=== PATIENT | male | born 1955 | race Caucasian/White ===

== ENCOUNTER 2017-08-10 08:08 | Outpatient (CLI) | payer OTHER ==
[2017-08-10 12:17] LABS: BASOPHILS # (AUTO) 0.1 10^3/uL (0.0-0.1); BASOPHILS % (AUTO) 0.9 %; EOSINOPHILS # (AUTO) 0.2 10^3/uL (0.0-0.7); EOSINOPHILS % (AUTO) 3.2 %; HCT - HEMATOCRIT 45.4 % (42.0-52.0); HGB - HEMOGLOBIN 15.4 g/dL (14.0-18.0); LYMPHOCYTES # (AUTO) 1.5 10^3/uL (1.5-3.5); LYMPHOCYTES % (AUTO) 18.7 %; MEAN CORPUSCULAR HEMOGLOBIN 30.8 pg (27.0-31.0); MEAN CORPUSCULAR HGB CONC 33.9 g/dL (32.0-36.0); MEAN CORPUSCULAR VOLUME 90.9 fL (80.0-94.0); MEAN PLATELET VOLUME 10.7 fL (7.4-11.4); MONOCYTES # (AUTO) 0.5 10^3/uL (0.0-1.0); MONOCYTES % (AUTO) 6.6 %; NEUTROPHILS # (AUTO) 5.5 10^3/uL (1.5-6.6); NEUTROPHILS % (AUTO) 70.6 %; NUCLEATED RED BLOOD CELLS AUTO 0.1 /100WBC; RED BLOOD COUNT 4.99 10^6/uL (4.70-6.10); RED CELL DISTRIBUTION WIDTH 12.7 % (12.0-15.0); UNCORRECTED WHITE BLOOD COUNT 7.8 x10^3/uL; WHITE BLOOD COUNT 7.8 x10^3/uL (4.8-10.8)
[2017-08-10 12:21] LABS: ALBUMIN/GLOBULIN RATIO 1.4 (1.0-2.2); BILIRUBIN,TOTAL 0.8 mg/dL (0.2-1.0); BUN - BLOOD UREA NITROGEN 14 mg/dL (6-20); CARBON DIOXIDE - CO2 26 mmol/L (21-32); CHLORIDE 106 mmol/L (101-111); CHOL/HDL RATIO 3.3 (<5.0); CHOLESTEROL 179 mg/dL; CREATININE 0.8 mg/dL (0.6-1.2); GFR - MDRD 98 (>89); GLUCOSE 101 mg/dL (70-100); HDL CHOLESTEROL 55 mg/dL; LDL/HDL RATIO 1.9 (<3.6); POTASSIUM 4.4 mmol/L (3.5-5.0); SODIUM 137 mmol/L (135-145); TOTAL PROTEIN 7.1 g/dL (6.7-8.2); TRIGLYCERIDES 95 mg/dL; URIC ACID 5.9 mg/dL (2.6-7.2); VLDL CHOLESTEROL 19 mg/dL
== END 2017-08-10 08:09 | disposition home or self-care (01) ==
LOC: LAB.F 08:08
PROVIDERS: ATTEND Internal Medicine
DX: M19.90 Unspecified osteoarthritis, unspecified site (principal); G62.9 Polyneuropathy, unspecified; E78.5 Hyperlipidemia, unspecified; M10.9 Gout, unspecified
CPT/HCPCS: 36415; 80053; 80061; 84153; 84550; 85025

== ENCOUNTER 2019-04-15 09:03 | Day surgery (SDC) | payer MEDICARE ==
[~2019-04-15 09:03] MED LIST: BUPIVACAINE 0.5% PF 10 ML VIAL ONE; CEFAZOLIN SODIUM IN 0.9 % NACL 2 GM/100 ML BAG IV ONE
[2019-04-15] MEDS ORDERED: ROCURONIUM 50 MG/5 ML VIAL IVP ONE (09:04)
[2019-04-15] MEDS ORDERED: CEFAZOLIN SODIUM IN 0.9 % NACL 2 GM/100 ML BAG IV ONE (09:04)
[2019-04-15] MEDS ORDERED: LACTATED RINGERS 1,000 ML IV ONE ×2 (09:43→11:43)
--- NOTE | 2019-04-15 09:58 | ANESTHESIA ---
Pre-Anesthesia VS, & Labs - Diagnosis left inguinal hernia - Procedure left inguinal hernia repair Vital Signs: Temp Pulse Resp BP Pulse Ox 36.6 C 79 15 139/93 H 96 04/15/19 09:15 04/15/19 09:15 04/15/19 09:15 04/15/19 09:15 04/15/19 09:15 Height 5 ft 8 in Weight (kg) 68.5 kg - NPO >8 hours Home Medications and Allergies Home Medications: Ambulatory Orders Omeprazole 20 mg PO 04/15/19 Omeprazole 20 mg PO 04/15/19 Allergies/Adverse Reactions: Allergies Allergy/AdvReac Type Severity Reaction Status Date / Time No Known Drug Allergies Allergy Verified 05/30/15 14:25 Anes History & Medical History - Anesthetic History Anesthesia Complications: reports: No previous complications Family history of Anesthesia Complications: Denies Family history of Malignant Hyperthermia: Denies - Medical History Cardiovascular: reports: None Pulmonary: reports: None Gastrointestinal: reports: None Urinary: reports: Kidney stones Musculoskeletal: reports: None Endocrine/Autoimmune: reports: None Skin: reports: None Exam General: Alert, Oriented x3, Cooperative, No acute distress Dental: WNL Mouth Openin Fingerbreadth Neck Mobility: Normal Mallampati classification: II Thyromental Distance: 4-6 cm Respiratory: Lungs clear, Normal breath sounds, No respiratory distress, No accessory muscle use Cardiovascular: Regular rate, Normal S1, Normal S2, No murmurs Plan Anesthesia Type: General Consent for Procedure(s) Verified and Reviewed: Yes Code Status: Attempt Resuscitation ASA classification: 1-Healthy patient Is this case an emergency?: No
[2019-04-15] MEDS ORDERED: BUPIVACAINE 0.5% PF 10 ML VIAL INFIL ONE ×2 (11:37→12:02)
[2019-04-15] MEDS ORDERED: ONDANSETRON 4 MG/2 ML VIAL IVP PRN (12:16)
[2019-04-15] MEDS ORDERED: HYDROmorphone 0.5 MG/0.5 ML SYRINGE IVP PRN (12:16)
[2019-04-15] MEDS ORDERED: HYDROcod/ACETAM 5/325 MG TABLET PO PRN (12:16)
[2019-04-15] MEDS ORDERED: PROPOFOL 200 MG/20 ML VIAL IVP ONE (12:20)
[2019-04-15] MEDS ORDERED: MIDAZOLAM 2 MG/2 ML VIAL IVP ONE (12:20)
[2019-04-15] MEDS ORDERED: KETOROLAC 30 MG/ML VIAL IVP ONE (12:20)
[2019-04-15] MEDS ORDERED: ONDANSETRON 4 MG/2 ML VIAL IVP ONE (12:20)
[2019-04-15] MEDS ORDERED: fentaNYL 100 MCG/2 ML VIAL IVP ONE (12:20)
[2019-04-15] MEDS ORDERED: DEXAMETHASONE 4 MG/ML VIAL IVP ONE (12:20)
--- NOTE | 2019-04-15 12:23 | OPERATIVE REPORT ---
Operative Report - General Planned Procedure: Left inguinal herniorrhaphy Pre-Op Diagnosis: Left inguinal hernia Procedure Performed: Left direct and indirect inguinal herniorrhaphy Post Op Diagnosis: Left direct and indirect inguinal hernia - Procedure Note Primary Surgeon: Phi Washburn MD Anesthesia Provider: Mohit Escamilla CRNA Anesthesia Technique: General ET tube, Local (30 mL of half percent Marcaine) IV Fluids (mL): 1,100 Estimated Blood Loss (mL): 5 Drain/Tube Type: Other (None.) Complications: None. - Other Other Information/Narrative: OPERATIVE DESCRIPTION/REPORT: After verbal and written informed consent was obtained detailing the risks of infection, bleeding requiring transfusion with its risks, nerve injury, and , and after I met with the patient confirming the surgery and the site of the surgery and after initialing the site of the surgery with a surgical marker, the patient was brought to the operative suite and placed supine on the operating table. Great care was taken to avoid pressure points to prevent pressure necrosis or nerve injury. Monitoring devices were applied along with TEDs and pneumatic compressive stockings (to prevent DVT). The patient received preoperative antibiotics for surgical prophylaxis. Mohit Escamilla CRNA sedated and anesthetized the patient for the entire procedure. The patient was prepped and draped in the usual sterile manner. With the patient draped my initials were clearly visible. A "time in" then confirmed that the patient was identified with 3 identifiers (name, date and medical record number), the history and physical was in the chart, the signed consent confirming the procedure was in the chart, the patient was in the correct position, the aforementioned prophylactic measures were in place or given, we had the correct personnel and equipment to complete the procedure and that anesthesia, surgery and nursing were given an opportunity to express any concerns. With the agreement of everyone in the room, we proceeded with the operation. A standard inguinal incision was made and dissection was carried down to the external oblique aponeurosis using a combination of Metzenbaum scissors and Bovie electrocautery. The external oblique aponeurosis was cleared of overlying adherent tissue, and the external ring was delineated. The external oblique was the incised with a scalpel and this incision was carried out to the external ring using Metzenbaum scissors. Having exposed the inguinal canal, the cord structures were from the canal using blunt dissection, and a Cerulean drain was placed around the cord structures at the level of the pubic tubercle. This Cerulean drain was then used to retract the cord structures as needed. Adherent cremasteric muscle was dissected free from the cord using Bovie electrocautery. The cord was then explored using a combination of sharp and blunt dissection, and the sac was found anteromedially to the cord structures. The sac was dissected free from the cord structures using a combination of blunt dissection and Bovie electrocautery. Once preperitoneal fat was encountered, the dissection stopped and the sac was high ligated with a 2-0 Vicryl, transected, t he stump cauterized and allowed to retract back into the abdominal cavity and a medium Covidien plug and patch (Ref# [id number], Lot# [id number], use date 2023-09-08) inserted into the internal ring. The plug was secured to the internal ring by interrupted 2-0 PDS sutures. Additionally, the patient had a direct inguinal hernia. Additionally, the patient had a direct inguinal hernia. I sewed to the shelving edge of Poupart's ligament to the conjoined tendon using interrupted 2- 0 PDS sutures thus keeping the direct hernia sac out of my way. The Bard Perfix enlay patch was then placed on the floor of the inguinal canal and secured in place using interrupted 0 PDS sutures to the conjoined tendon superiorly, pubic tubercle medially, and shelving edge inferiorly. By reinforcing the floor with the enlay patch, the direct hernia was yet again repaired and a new internal ring was thus formed. The Reginald drain was removed. Hemostasis was obtained using Bovie electrocautery. The incision in the external oblique was approximated using a 3-0 Vicryl in a running fashion, thus reforming the external ring. The fascia and skin was then injected with the 1/2% marcaine for fci pain control. The skin incision was approximated with 4-0 Monocryl in a subcuticular fashion. The skin was cleaned of its prep and Dermabond was applied. At this point a time out was performed that confirmed that all the counts were correct, the procedure that was performed, the blood loss, the IV fluids administered, and the patients condition. A dressing was then applied. Gentle downward traction ensured that the testes were well seated in the scrotum. Having tolerated the procedure well, the patient was taken to short stay in good and stable condition. Dragon disclaimer: This document was created in part using voice recognition technology. Because of the inherent limitations of the system ([employer] user manual states that the licensee understands that speech recognition is a statistical process and that recognition errors are inherent in the process), occasional same sounding word substitutions and grammatical errors do occur and persist despite proofreading. Please read this document for context.
[2019-04-15] MEDS ORDERED: HYDROcod/ACETAM 5/325 MG TABLET ONE (13:01)
[2019-04-15 13:46] VITALS: BP 130/78
== END 2019-04-15 09:04 | disposition home or self-care (01) ==
LOC: SDS 09:03
PROVIDERS: ATTEND Surgery
PROC: 0YU60JZ Supplement Left Inguinal Region with Synthetic Substitute, Open Approach (ICD-10-PCS; principal; 2019-04-15 10:30)
DX: K40.90 Unilateral inguinal hernia, without obstruction or gangrene, not specified as recurrent (principal); J38.5 Laryngeal spasm
CPT/HCPCS: 49505; A9270; C1781; J0690; J7120